=== PATIENT | female | born 1995 | race Hispanic/Latino ===

== ENCOUNTER 2016-07-14 19:13 | Emergency (ER) | payer OTHER ==
[~2016-07-14] VITALS: Ht 154.9 cm; Wt 59.0 kg
[~2016-07-14 19:13] MED LIST: ALBUTEROL0.09 MG/A1 INH; AUGMENTIN 875-1 EACH PO; BACTRIM DS 8001 TAB PO; CYCLOBENZAPRINE10 M1 PO; DOXYCYCLINE HY100 M4 PO; FIORICET 325 MG1 TAB PO; FLEXERIL10 MG PO; IBUPROFEN600 MG PO; IBUPROFEN800 MG PO; KEFLEX500 MG PO; LOESTRIN FE 1.51 TAB PO; MOBIC15 M1 PO; MOMETASONE0.05 MG/Ac NASB; MOTRIN 600 MG600 MG PO; NAPROSYN500 M1 PO; OMEPRAZOLE20 M2 PO; PERCOCET 325 MG1 TA2 PO; ROBITUSSIN W/CO10 ML PO; TESSALON PERLE100 MG PO; TRAMADOL HCL50 M1 PO; TRAMADOL50 MG PO; VICODIN5-300 PO; ZITHROMAX Z-PA250 M1 PO
[2016-07-14 19:32] VITALS: BP 113/70
--- NOTE | 2016-07-14 19:46 | ED THROAT/DENTAL COMPLAINT ---
History of Present Illness General Chief Complaint: General Adult Stated Complaint: PT HAS BUMP ON THE LIP BLEEDING FOR AWHILE Source: patient, family, old records Exam Limitations: no limitations Vital Signs & Intake/Output Vital Signs & Intake/Output Vital Signs Date Time Temp Pulse Resp B/P Pulse O2 O2 Flow FiO2 Ox Delivery Rate 07/15 1931 98.6 77 18 113/70 97 Room Air Allergies Coded Allergies: peanut (Severe, ITCHY THROAT 07/16/15) lactose (Intermediate, GAS PAINS 07/16/15) Reconcile Medications Albuterol Sulfate (Albuterol Sulfate Hfa) 0.09 MG/Actuation JULIANA 2 PUFF INH Q4- 6 PRN PRN ASTHMA (Reported) 90 MCG PER PUFF Cyclobenzaprine HCl 10 MG TABLET 1 TAB PO TID PRN MUSCLE RELAXANT MAY CAUSE DROWSINESS Meloxicam (Mobic) 15 MG TABLET 1 TAB PO DAILY PRN PAIN/INFLAMMATION Omeprazole 20 MG CAPSULE.DR 1 CAP PO DAILY GERD Tramadol HCl 50 MG TABLET 1-2 TAB PO Q6P PRN pain Triage Note: PT TO TRIAGE WITH C/O BLEEDING OT LOWER LIP S/P PT BIT R SIDE OF LOWER LIP 2HR ALLERGIST/MD. BAND AID IN PLACE NO OTHER COMPLAINTS. VSS. Triage Nurses Notes Reviewed? yes Onset: Abrupt Duration: day(s): (1), constant Timing: single episode today Injury Environment: home Severity: mild Severity Numbers: 2 No Modifying Factors: none : No Patient currently breastfeeds: No HPI: 20-year-old female presents emergency room for evaluation complaining of bleeding from a lesion that she has had to her right lower lip for the past 4 months. The patient reports to intermittent bleeding episodes which normally resolve with pressure and ice however states that his continued bleeding today despite the same. No history of bleeding disorders in the past. She states she 's been seen by complex care nurse practitioner to perform biopsy of the lesion however no known cause was identified and told her that she see a plastic surgeon for removal for which she has not seen. She denies any other trauma to her lip today no fever no chills. There are no other modifying factors or associated symptoms otherwise. (BOLIVAR BOWIE,PABLO) Past History Travel History Traveled to [place] past 21 day No Medical History Any Pertinent Medical History? see below for history Neurological: NONE EENT: allergies Cardiovascular: syncope Respiratory: asthma Gastrointestinal: NONE Hepatic: NONE Renal: NONE Musculoskeletal: NONE Psychiatric: NONE Endocrine: NONE Blood Disorders: NONE Cancer(s): NONE MAIL DISTRIBUTOR/Reproductive: NONE Surgical History Surgical History: non-contributory Psychosocial History What is your primary language Ugandan Tobacco Use: Never used Family History Hx Contributory? No (PABLO DE LA VEGA) Review of Systems Review of Systems Constitutional: Reports: see HPI. All Other Systems: Reviewed and Negative Comments Review of systems: See HPI, All other systems negative. Constitutional, no chills no fever, no malaise HEENT: No visual changes no sore throat no congestion Cardiovascular: No chest pain , no palpitation Skin, no rashes, no change in skin Respiratory: No dyspnea no cough no sputum GI: No nausea no vomiting, no diarrhea, : No dysuria Muscle skeletal: No joint pain, no back pain, no neck pain, Neurologic: no headache Psych: No stress Heme/endocrine: No bruising Immunology: No lymphadenopathy (PABLO DE LA VEGA) Physical Exam Physical Exam General Appearance: well developed/nourished, no apparent distress, alert, awake Mouth/Throat: normal mouth inspection, pharynx normal Comments: Well-developed well-nourished patient in no apparent distress. HEENT: Atraumatic, extraocular motion intact there is a growth to the right lower lip that is oozing blood, there is no surrounding induration or no vesicular rashes the lips or face no erythema or swelling to the face there is no intraoral abrasions or lacerations Neck: Supple, FROM Back: FROM, Cardiovascular: Regular rate and rhythms Respiratory: No respiratory distress. Patient speaking in full complete sentences. Extremities: full range of motion Neuro: Alert and oriented x3 Skin: Warm & dry;No appreciable rash on exposed skin Psych: Mood affect normal, normal memory normal judgment. Core Measures ACS in differential dx? No Severe Sepsis Present: No Septic Shock Present: No (PABLO DE LA VEGA) Progress Differential Diagnosis: laceration abrasion avulsion malignancy Plan of Care: surgicel dressing applied to oozing, advised clsoe f/u with dr luna. returnn with any concerns. they feel comfortable with plan (PABLO DE LA VEGA) Departure Departure Time of Disposition: 1957 Disposition: HOME OR SELF CARE Condition: Stable Clinical Impression Primary Impression: Abrasion of lip Referrals: GABRIELLA GHOSH APRN (PCP/Family) VALE ARREAGA,LISETH Raza Additional Instructions: folllow up with dr luna on saturday as discussed. Departure Forms: Customer Survey General Discharge Information (PABLO DE LA VEGA) PA/ANIMAL CRUELTY INVESTIGATOR Co-Sign Statement Statement: ED Attending supervision documentation- [] I saw and evaluated the patient. I have also reviewed all the pertinent lab results and diagnostic results. I agree with the findings and the plan of care as documented in the PA's/ANIMAL CRUELTY INVESTIGATOR's documentation. x I have reviewed the ED Record and agree with the PA's/ANIMAL CRUELTY INVESTIGATOR's documentation. [] Additions or exceptions (if any) to the PAs/ANIMAL CRUELTY INVESTIGATOR's note and plan are summarized below: [] (ALDO ARREAGA,LIDA)
== END 2016-07-14 20:04 ==
LOC: ERH 19:13
DX: S00.511A Abrasion of lip, initial encounter (principal); X58.XXXA Exposure to other specified factors, initial encounter; Y93.9 Activity, unspecified; Y92.9 Unspecified place or not applicable
CPT/HCPCS: 99282

== ENCOUNTER 2016-07-22 22:23 | Emergency (ER) | payer OTHER ==
[~2016-07-22] VITALS: Ht 152.4 cm; Wt 61.2 kg
--- NOTE | 2016-07-22 22:57 | ED GI/GU/ABDOMINAL COMPLAINT ---
History of Present Illness General Chief Complaint: Female Urogenital Problems Stated Complaint: UTI? Source: patient Exam Limitations: no limitations Vital Signs & Intake/Output Vital Signs & Intake/Output Vital Signs Date Time Temp Pulse Resp B/P Pulse O2 O2 Flow FiO2 Ox Delivery Rate 07/22 2342 98.6 86 16 120/78 98 Room Air 07/22 2226 98.6 86 18 116/76 99 Room Air ED Intake and Output 07/23 0000 07/22 1200 Intake Total 0 Output Total Balance 0 Intake, Oral 0 Patient 135 lb Weight Allergies Coded Allergies: peanut (Severe, ITCHY THROAT 07/16/15) lactose (Intermediate, GAS PAINS 07/16/15) Reconcile Medications Albuterol Sulfate (Albuterol Sulfate Hfa) 0.09 MG/Actuation JULIANA 2 PUFF INH Q4- 6 PRN PRN ASTHMA (Reported) 90 MCG PER PUFF Cyclobenzaprine HCl 10 MG TABLET 1 TAB PO TID PRN MUSCLE RELAXANT MAY CAUSE DROWSINESS Doxycycline Hyclate 100 MG TABLET 1 TAB PO BID PID Fluconazole (Diflucan) 150 MG TABLET 1 TAB PO AD YEAST INFECTION 1 TAB IN 72 HOURS Meloxicam (Mobic) 15 MG TABLET 1 TAB PO DAILY PRN PAIN/INFLAMMATION Metronidazole (Flagyl) 500 MG TABLET 1 TAB PO BID BV Omeprazole 20 MG CAPSULE.DR 1 CAP PO DAILY GERD Tramadol HCl 50 MG TABLET 1-2 TAB PO Q6P PRN pain Triage Note: PT TO TRIAGE WITH C/O PAIN AND BURNING WITH URINATION x2DAYS. VSS. Triage Nurses Notes Reviewed? yes ? n Is pt currently ? No Onset: Abrupt Duration: day(s):, constant Timing: recent history Location: urethral Radiation: no radiation Activities at Onset: none No Modifying Factors: none HPI: 20-year-old female comes into emergency room for further evaluation of burning with urination vaginal discharge and itching has been going on for the past couple days. Sexually active this week. Patient reports that they used a condom. Denies any abdominal pain. Denies any back pain or vomiting. Some intermittent fevers. Denies any other associated symptoms. (RACHEL YAÑEZ) Past History Travel History Traveled to [place] past 21 day No Medical History Any Pertinent Medical History? 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 No (RACHEL YAÑEZ) Review of Systems Review of Systems Constitutional: Reports: no symptoms. EENTM: Reports: no symptoms. Respiratory: Reports: no symptoms. Cardiovascular: Reports: no symptoms. GI: Reports: no symptoms. Genitourinary: Reports: see HPI. Musculoskeletal: Reports: no symptoms. Skin: Reports: no symptoms. Neurological/Psychological: Reports: no symptoms. Hematologic/Endocrine: Reports: no symptoms. Immunologic/Allergic: Reports: no symptoms. All Other Systems: Reviewed and Negative (RACHEL YAÑEZ) Physical Exam Physical Exam General Appearance: well developed/nourished, no apparent distress, alert Head: atraumatic, normal appearance Eyes: Bilateral: normal appearance, EOMI. Ears, Nose, Throat, Mouth: hearing grossly normal, moist mucous membrane Neck: normal inspection, full range of motion Respiratory: normal breath sounds, no respiratory distress Cardiovascular: regular rate/rhythm Gastrointestinal: soft, non-tender Pelvic: cervicitis, discharge, erythema and skin excoriations surrounding labia majora and in the perineum Back: normal inspection Extremities: normal range of motion Neurologic/Psych: awake, alert, oriented x 3, normal gait, normal mood/affect Skin: intact, normal color Core Measures ACS in differential dx? No Severe Sepsis Present: No Septic Shock Present: No (RACHEL YAÑEZ) Progress Differential Diagnosis: appendicitis, ectopic , intrauterine , kidney stone, ovarian cyst, ovarian torsion, PID/cervicitis, UTI/pyelo, Trichomonas, bacterial vaginosis, gonorrhea and chlamydia, herpes Plan of Care: Orders Procedure Date/time Status Add-on Test (ER Only) 07/23 2255 Active TRICHOMONAS 07/23 2255 Complete POTASSIUM HYDROXIDE (JASPER) 07/23 2255 Complete GENITAL CULTURE 07/23 2255 Active CHLAMYDIA-GC DNA PROBE 07/23 2255 Active CULTURE,URINE 07/22 2234 Active URINE 07/22 2225 Complete URINALYSIS 07/22 2225 Complete Laboratory Tests 07/22/162234: Urine Color YEL, Urine Clarity CLEAR, Urine pH 6.0, Ur Specific Levels 1.020, Urine Protein NEG, Urine Ketones NEG, Urine Nitrite NEG, Urine Bilirubin NEG, Urine Urobilinogen 1.0, Ur Leukocyte Esterase TRACE H, Ur Microscopic SEDIMENT EXAMINED, Urine RBC 1-3, Urine WBC 1-3 H, Ur Epithelial Cells FEW, Urine Bacteria FEW H, Urine Mucus FEW, Urine Hemoglobin TRACE-INTACT, Urine Glucose NEG, Urine Test NEGATIVE Microbiology 07/22 2310 GENITAL: GC DNA Probe - RECD 07/22 2310 GENITAL: Chlamydia DNA Probe (JEANNINE) - RECD 07/22 2310 GENITAL: JASPER Preparation - COMP 07/22 2310 GENITAL: Trichomonas Preparation - COMP 07/22 2310 GENITAL: Genital Culture - RECD 07/22 2234 URINE ROUT: Urine Culture - RECD Initial ED EKG: none Comments: 07/22/2016 11:19:04 PM Nontoxic-appearing. In no apparent distress. Resting comfortably in room. Follow-up with REAL ESTATE BROKER ASSOCIATE doctor. Return if any other concerns. Patient treated prophylactically for everything. Discussed possibilities of herpes but less likely. Could be gonorrhea and chlamydia. (LATA BOWIE,RACHEL) Departure Departure Disposition: HOME OR SELF CARE Condition: Stable Clinical Impression Primary Impression: Vaginitis Referrals: GABRIELLA GHOSH APRN (PCP/Family) Additional Instructions: Take for, as all, doxycycline, and Flagyl as prescribed. Follow-up with your sales associate key holder this week. Do not engage in any sexual activity until results back. Return if any other concerns. Do not drink alcohol while taking these antibiotics. Please go over all results of today's visit with your primary care doctor. Contact your primary care doctor to let them know you were here in the emergency room. There may be nonspecific findings which may not be related to your visit today here in the emergency room but may require further evaluation and chronic monitoring by your primary care doctor. If you had a laceration today the chance of foreign body always remains. You should follow-up with your primary care doctor for recheck in 3-5 days for a wound check. If you had an x-ray done there is a chance that a fracture could have been missed on initial read and you should follow-up with your primary care doctor for repeat x-rays if symptoms persist. If your blood pressure was elevated here in the emergency room please have rechecked by her primary care doctor within the next 48 hours by your primary care doctor. If you were prescribed a narcotic here in the emergency room or any type of controlled substances you're not allowed to drive while taking this medication or operate any type of heavy machinery. Narcotics can make you feel lightheaded dizziness nausea and can cause constipation. You may need to pickle sorter a stool softener. Thank you for choosing [facility] emergency room. Please return to the emergency room immediately if you have any other concerns worsening of symptoms. Departure Forms: Customer Survey General Discharge Information Prescriptions: Current Visit Scripts Fluconazole (Diflucan) 1 TAB PO AD #1 TAB 1 TAB IN 72 HOURS Metronidazole (Flagyl) 1 TAB PO BID #20 TAB Doxycycline Hyclate 1 TAB PO BID #20 TAB (RACHEL YAÑEZ) PA/STRATEGIC BUYER Co-Sign Statement Statement: ED Attending supervision documentation- [] I saw and evaluated the patient. I have also reviewed all the pertinent lab results and diagnostic results. I agree with the findings and the plan of care as documented in the PA's/STRATEGIC BUYER's documentation. [x] I have reviewed the ED Record and agree with the PA's/STRATEGIC BUYER's documentation. [] Additions or exceptions (if any) to the PAs/STRATEGIC BUYER's note and plan are summarized below: [] (CHASTITY ARREAGA,VIMAL Delgado)
[2016-07-22] MEDS ORDERED: DOXYCYCLINE HY100 M4 PO (23:15)
[2016-07-22] MEDS ORDERED: FLAGYL500 MG PO (23:15)
[2016-07-22] MEDS ORDERED: DIFLUCAN150 M1 PO (23:15)
[2016-07-22 23:42] VITALS: BP 120/78
== END 2016-07-22 23:43 ==
LOC: ERH 22:23
DX: N76.0 Acute vaginitis (principal)
CPT/HCPCS: 87070; 81001; 81025; 87086; 87491; 87591; 96372; J0456; J0696

== ENCOUNTER 2016-09-09 23:32 | Emergency (ER) | payer OTHER ==
[~2016-09-09] VITALS: Ht 152.4 cm; Wt 59.0 kg
[~2016-09-09 23:32] MED LIST changes: +DIFLUCAN150 M1 PO; +FLAGYL500 MG PO
[2016-09-09 23:42] VITALS: BP 111/73
--- NOTE | 2016-09-09 23:56 | ED DYSPNEA/ASTHMA COMPLAINT ---
History of Present Illness General Chief Complaint: Wheezing/Asthma Stated Complaint: "PER PT ASTHMA FLARE" Source: patient Exam Limitations: no limitations Vital Signs & Intake/Output Vital Signs & Intake/Output Vital Signs Date Time Temp Pulse Resp B/P B/P Pulse O2 O2 Flow FiO2 Mean Ox Delivery Rate 09/10 0022 Room Air Room Air 09/09 2342 98.1 106 18 111/73 100 Room Air ED Intake and Output 09/10 0000 09/09 1200 Intake Total Output Total Balance Patient 130 lb Weight Weight Reported by Patient Measurement Method Allergies Coded Allergies: peanut (Severe, ITCHY THROAT 07/16/15) lactose (Intermediate, GAS PAINS 07/16/15) Reconcile Medications Albuterol Sulfate (Albuterol Sulfate Hfa) 0.09 MG/Actuation JULIANA 2 PUFF INH Q4- 6 PRN PRN ASTHMA (Reported) 90 MCG PER PUFF Albuterol Sulfate (Ventolin Hfa) 90 MCG HFA.AER.AD 2 PUF INH Q4-6 PRN PRN WHEEZE Albuterol Sulfate 1.25 MG/3 ML VIAL.NEB 1 Vial INH/LAYA Q4-6 PRN WHEEZE Cyclobenzaprine HCl 10 MG TABLET 1 TAB PO TID PRN MUSCLE RELAXANT MAY CAUSE DROWSINESS Doxycycline Hyclate 100 MG TABLET 1 TAB PO BID PID Fluconazole (Diflucan) 150 MG TABLET 1 TAB PO AD YEAST INFECTION 1 TAB IN 72 HOURS Meloxicam (Mobic) 15 MG TABLET 1 TAB PO DAILY PRN PAIN/INFLAMMATION Metronidazole (Flagyl) 500 MG TABLET 1 TAB PO BID BV Omeprazole 20 MG CAPSULE.DR 1 CAP PO DAILY GERD Prednisone 50 MG TABLET 1 TAB PO DAILY ASTHMA Tramadol HCl 50 MG TABLET 1-2 TAB PO Q6P PRN pain Triage Note: TRIAGE: PATIENT TO ER FROM HOME REPORTING "I THINK IT'S MY ASTHMA. I'VE BEEN COUGHING FOR 2 HOURS." AFEBRILE, REPORTS COUGH IS PICKLER HELPER, SPEECH CLEAR THOUGH REPORTING EXERTIONAL SOB AND INC SOB W/ SPEAKING. LUNGS CTA. Triage Nurses Notes Reviewed? yes Onset: Gradual Duration: day(s):, waxing and waning Timing: recent history Severity: moderate Activities at Onset: none Prior Episodes/Possible Cause: occasional episodes Associated Symptoms: breathing treatment improves symptoms : No Patient currently breastfeeds: No HPI: 20 yo woman h/o asthma, presents with cough, wheezing x 1 day. She notes that "I usually get worse when the allergies come out." She notes that she ran out of her asthma meds. She notes no phlegm, fever, chills. She is otherwise well. Past History Travel History Traveled to [place] past 21 day No Medical History Any Pertinent Medical History? see below for history Neurological: NONE EENT: allergies Cardiovascular: syncope Respiratory: asthma Gastrointestinal: NONE Hepatic: NONE Renal: NONE Musculoskeletal: NONE Psychiatric: NONE Endocrine: NONE Blood Disorders: NONE Cancer(s): NONE INDUSTRIAL TECHNOLOGIST/Reproductive: NONE Surgical History Surgical History: non-contributory Psychosocial History What is your primary language Macedonian Tobacco Use: Never used Family History Hx Contributory? No Review of Systems Review of Systems Constitutional: Reports: no symptoms. EENTM: Reports: no symptoms. Respiratory: Reports: no symptoms. Cardiovascular: Reports: no symptoms. GI: Reports: no symptoms. Genitourinary: Reports: no symptoms. Musculoskeletal: Reports: no symptoms. Skin: Reports: no symptoms. Neurological/Psychological: Reports: no symptoms. Hematologic/Endocrine: Reports: no symptoms. Immunologic/Allergic: Reports: no symptoms. All Other Systems: Reviewed and Negative Physical Exam Physical Exam General Appearance: well developed/nourished, mild distress Head: atraumatic, normal appearance Eyes: Bilateral: normal appearance. Ears, Nose, Throat: normal pharynx, normal ENT inspection, hearing grossly normal Neck: normal inspection, supple, full range of motion Respiratory: chest non-tender, wheezing, mild wheeze Gastrointestinal: normal bowel sounds, soft, non-tender, no organomegaly Extremities: normal inspection, normal capillary refill, normal range of motion, no edema Neurologic/Psych: no motor/sensory deficits, awake, alert, oriented x 3 Skin: intact, normal color, warm/dry Core Measures ACS in differential dx? No Severe Sepsis Present: No Septic Shock Present: No Progress Differential Diagnosis: asthma, bronchitis Plan of Care: gave breathing treatment, decadron... pt stable for discharge... gave rx for prednisone and albuterol.... encouraged close follow up. Initial ED EKG: none Departure Departure Disposition: HOME OR SELF CARE Condition: Stable Clinical Impression Primary Impression: Asthma exacerbation Referrals: GABRIELLA GHOHS APRN (PCP/Family) Departure Forms: Customer Survey General Discharge Information Prescriptions: Current Visit Scripts Albuterol Sulfate (Ventolin Hfa) 2 PUF INH Q4-6 PRN PRN WHEEZE #1 INHAL Ref 5 Albuterol Sulfate 1 Vial INH/LAYA Q4-6 PRN WHEEZE #1 BOX Ref 5 Prednisone 1 TAB PO DAILY #4 TAB Critical Care Note Critical Care Note Critical Care Time: non-applicable
[2016-09-10] MEDS ORDERED: VENTOLIN HFA18 GM INH (00:06)
[2016-09-10] MEDS ORDERED: ALBUTEROL1.25 MG/1 INH/SOL (00:06)
[2016-09-10] MEDS ORDERED: PREDNISONE50 M1 PO (00:06)
== END 2016-09-10 00:58 ==
LOC: ERH 23:32
DX: J45.901 Unspecified asthma with (acute) exacerbation (principal)
CPT/HCPCS: 1263; J1100